=== PATIENT | female | born 1965 | race Hispanic/Latino ===

== ENCOUNTER 2017-03-16 10:57 | Outpatient (CLI) | payer BC | END 2017-03-16 10:58 | disposition home or self-care (01) | LOC: BICMAMMO 10:57 | PROVIDERS: ATTEND Obstetrics & Gynecology | DX: Z12.31 Encounter for screening mammogram for malignant neoplasm of breast (principal) | CPT/HCPCS: 77063 ==

== ENCOUNTER 2017-06-06 14:39 | Outpatient (CLI) | payer BC ==
--- NOTE | 2017-06-06 17:15 | MRI ---
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 COMPARISON: MRI of brain and sella of 12/18/2002. TECHNIQUE: Multiplanar, multisequence MR of the whole brain, and thin slice through the sella turcica, pre and p ost IV injection of 7 mL of Multihance gadolinium based contrast agent. FINDINGS: The ventricles are normal in size and configuration. There is no restricted diffusion, mass effect, m idline shift, or extra-axial fluid collection. No major intra-axial signal abnormality, abnormal enha ncement, or mass, of the brain. Previously, there was a precontrast T1 relatively hypointense mass in the left side of the sella turc ica, involving the left cavernous sinus, which enhanced. Now, in that location, there is an irregular ly shaped fluid signal intensity lesion, with an hourglass shape as seen on the coronal images, measu ring approximately 1.2 x 0.8 x 1 cm. There is little or no enhancement seen within this lesion on the dynamic post contrast images. There is questionable delayed mild enhancement on the standard delayed postcontrast images in this area. The left carotid siphon, more specifically the left supraclinoid i nternal carotid artery, abuts the undersurface of the left optic nerve, minimally displacing it super iorly. This was also the case previously. The right and left lateral edges of the sella turcica, and the dorsum sellae, are in very close proximity to the undersurfaces of the posterior optic nerves and optic chiasm, almost in contact, but without tamia compression. The clivus has normal signal. The Me ckel's caves are bilaterally normal. Right cavernous sinus is normal. IMPRESSION: 1. Previously demonstrated mass in the left side of the sella turcica, with involvement of the l eft cavernous sinus, currently has different signal characteristics and different enhancement pattern , and appears more cystic now. 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 2. The left supraclinoid carotid siphon abuts the undersurface of the posterior left optic nerve , minimally displacing it superiorly. 3. The same is true of the contralateral right side, to a lesser degree, and this involves the d orsum sellae, all in chronic very close proximity, if not contact with, the optic chiasm. It is uncer tain whether or not this is responsible for the patient's visual symptoms. 4. The brain is essentially normal. POS: [facility]
== END 2017-06-06 14:40 | disposition home or self-care (01) ==
LOC: MRI 14:39
PROVIDERS: ATTEND Internal Medicine Endocrinology, Diabetes & Metabolism
DX: D49.7 Neoplasm of unspecified behavior of endocrine glands and other parts of nervous system (principal); H54.7 Unspecified visual loss
CPT/HCPCS: 70553

== ENCOUNTER 2018-05-08 10:26 | Outpatient (CLI) | payer BC ==
--- NOTE | 2018-05-08 12:05 | RAD ---
CHEST 2 VIEWS: HISTORY: Fatigue. FINDINGS: Cardiac silhouette and pulmonary vasculature are unremarkable. Mediastinum is midline. No confluent airspace consolidation, pneumothorax, or pleural fluid. IMPRESSION: No active cardiopulmonary abnormalities are demonstrated. POS: [facility]
--- NOTE | 2018-05-08 12:09 | RAD ---
CERVICAL SPINE 4 VIEWS: Date: 05/08/18 HISTORY: Rheumatoid arthritis. Neck pain. FINDINGS: Vertebral body heights and alignment are maintained. Cervicothoracic junction is intact. Mild osteoph ytosis. No acute fracture, dislocation, or aggressive osseous erosions. IMPRESSION: Mild degenerative changes of cervical spine. POS: [facility]
--- NOTE | 2018-05-08 12:11 | RAD ---
THORACIC SPINE 3 VIEWS: Date: 05/08/18 HISTORY: Rheumatoid arthritis. Back pain. FINDINGS: There are 12 thoracic-type vertebrae. Minimal S-shaped curvature on the frontal view. Vertebral body heights and AP alignment are maintained. Mild osteophytosis throughout the vertebral bodies and facet s. IMPRESSION: Mild degenerative changes of the thoracic spine. No evidence of compression fracture. POS: [facility]
--- NOTE | 2018-05-08 12:22 | RAD ---
LUMBAR SPINE 3 VIEWS: HISTORY: Low back pain. Rheumatoid arthritis. FINDINGS: There are 5 lumbar-type vertebrae. Pedicles are intact. Vertebral body height and alignment are alethea ntained. Mild osteophytosis. Dystrophic calcification projects posterior through the midsacrum on t he lateral view. IMPRESSION: Mild degenerative changes. No evidence of compression fracture. POS: [facility]
== END 2018-05-08 10:27 | disposition home or self-care (01) ==
LOC: RAD 10:26
PROVIDERS: ATTEND Family Medicine
DX: M05.79 Rheumatoid arthritis with rheumatoid factor of multiple sites without organ or systems involvement (principal); R53.82 Chronic fatigue, unspecified; R10.9 Unspecified abdominal pain; N94.89 Other specified conditions associated with female genital organs and menstrual cycle; M47.816 Spondylosis without myelopathy or radiculopathy, lumbar region; M47.814 Spondylosis without myelopathy or radiculopathy, thoracic region; M47.812 Spondylosis without myelopathy or radiculopathy, cervical region
CPT/HCPCS: 71046; 72040; 72072; 72100

== ENCOUNTER 2018-07-14 03:06 | Emergency (ER) | payer BC ==
[2018-07-14 03:52] LABS: #Basophils 0.1 thou/uL (0.0-0.2); #Eosinphils 0.3 thou/uL (0.0-0.7); #Lymphocytes 3.8 thou/uL (1.20-3.40); #Monocytes 0.5 thou/uL (0.11-0.59); #Neutrophils 5.6 thou/uL (1.40-6.50); %Basophils 1.4 % (0.0-1.0); %Eosinophils 3.3 % (0.0-10.0); %Lymphocytes 36.5 % (21.0-51.0); %Monocytes 4.9 % (0.0-10.0); %Neutrophils 53.9 % (42.0-75.0); Hemoglobin 14.1 g/dL (12.0-16.0); Mean Corpuscular HGB CONC 33.7 g/dL (32.0-36.0); Mean Corpuscular Hemoglobin 31.6 pg (27.0-31.0); Mean Corpuscular Volume 93.6 fL (78.0-98.0); Mean Platelet Volume 6.9 fL (7.4-10.4); Platelet Count 359 thou/uL (130-400); RBC Distribution Width 11.5 % (11.5-14.5); Red Blood Cell (RBC) Count 4.47 mill/uL (4.20-5.40); White Blood Cell (WBC) Count 10.3 thou/uL (4.8-10.8)
[2018-07-14 04:11] LABS: ALT (SGPT) 15 U/L (8-55); AST (SGOT) 11 U/L (5-34); Albumin 4.4 g/dL (3.5-5.0); Alkaline Phosphatase 76 U/L (40-150); Anion Gap 15 mmol/L (10-20); BUN (Urea Nitrogen) 17 mg/dL (9.8-20.1); Bilirubin, Total 0.3 mg/dL (0.2-1.2); Calc. Creatinine Clearance 0 mL/min (70-130); Calcium 9.7 mg/dL (7.8-10.44); Carbon Dioxide 24 mmol/L (22-29); Chloride 106 mmol/L (98-107); Estimated GFR-MDRD 87; Globulin 3.1 g/dL (2.4-3.5); Glucose 120 mg/dL (70-105); Potassium 3.5 mmol/L (3.5-5.1); Protein, Total 7.5 g/dL (6.0-8.3); Sodium 141 mmol/L (136-145)
== END 2018-07-14 04:00 | disposition left against medical advice (07) ==
LOC: ERS 03:06
DX: Z53.21 Procedure and treatment not carried out due to patient leaving prior to being seen by health care provider (principal)
CPT/HCPCS: 36415; 80053; 84484; 85025; 85379; 93005

== ENCOUNTER 2018-07-19 12:18 | Outpatient (CLI) | payer BC ==
--- NOTE | 2018-07-19 14:17 | MRI ---
MRI BRAIN AND SELLA WITH AND WITHOUT CONTRAST: DATE: 07/19/18 HISTORY: 52-year-old female with R55 syncope and collapse, R22.0 localized swelling, mass and lump, head, and R41.3 other amnesia. COMPARISON: MRI brain and sella of 06/06/17. TECHNIQUE: Multiple sequences obtained in axial, sagittal, and coronal planes; pre and post IV injection of gado linium-based contrast agent: [] FINDINGS: The ventricles are normal in size and configuration. There is no major intraaxial signal abnormality , restricted diffusion, abnormal intraaxial enhancement, mass, midline shift or any other mass effect , recent intraaxial hemorrhage, or extraaxial fluid collection. Again noted is the irregularly shaped T1-hypointense and T2-hyperintense lesion in the left side of t he cavernous sinus/spenoid junction, as previously described. There is mild, thin, rim enhancement at this lesion, which may be cystic. The previously described chronic findings are unchanged. The super ior margins of the sella turcica and supraclinoid internal carotid arteries, in very close proximity to the bilateral optic nerves and optic chiasm, are again noted. There is no mass within the sella tu rcica itself. The clivus has normal signal. Bilateral Meckel's caves are normal. There has been no si gnificant change overall. IMPRESSION: 1. Lesion at the left lateral edge of sella turcica and left cavernous sinus, is unchanged since . 2. superior edges of sella turcica and supraclinoid internal carotids in close proximity to and abut ting optic nerves and optic chiasm, chronic and unchanged. 3. The brain is essentially normal. 4. No interval change overall since 06/06/17. jn[] POS: [facility]
== END 2018-07-19 12:19 | disposition home or self-care (01) ==
LOC: BICMRI 12:18
PROVIDERS: ATTEND Internal Medicine Endocrinology, Diabetes & Metabolism
DX: R22.0 Localized swelling, mass and lump, head (principal); R55 Syncope and collapse; R41.3 Other amnesia; G93.89 Other specified disorders of brain
CPT/HCPCS: 70553

== ENCOUNTER 2019-08-12 08:45 | Outpatient (CLI) | payer BC ==
--- NOTE | 2019-08-12 09:45 | ULT ---
Exam: Transabdominal and endovaginal pelvic ultrasound HISTORY:Increasing pelvic pain x1 year. Bilateral ovaries have been removed. COMPARISON: None TECHNIQUE: Transabdominal and endovaginal imaging of the pelvis is performed. FINDINGS: Uterus: Not appreciated on the transabdominal or endovaginal images Free fluid: None Right ovary: Surgically absent Left ovary: Surgically absent IMPRESSION: No obvious masses or fluid in the pelvis.
== END 2019-08-12 08:46 | disposition home or self-care (01) ==
LOC: BICULT 08:45
PROVIDERS: ATTEND Family Medicine
DX: R10.2 Pelvic and perineal pain (principal)
CPT/HCPCS: 76856

== ENCOUNTER 2020-11-26 15:19 | Outpatient (CLI) | payer BC | END 2020-11-26 15:20 | disposition home or self-care (01) | LOC: BICMAMMO 15:19 | PROVIDERS: ATTEND Family Medicine | DX: Z12.31 Encounter for screening mammogram for malignant neoplasm of breast (principal); Z91.89 Other specified personal risk factors, not elsewhere classified | CPT/HCPCS: 77063; 77067 ==

== ENCOUNTER 2021-04-27 13:51 | Outpatient (CLI) | payer BC | END 2021-04-27 13:52 | disposition home or self-care (01) | LOC: BICRAD 13:51 | PROVIDERS: ATTEND Physician Assistant | DX: R07.81 Pleurodynia (principal) ==

== ENCOUNTER 2021-07-21 12:26 | Outpatient (CLI) | payer BC | END 2021-07-21 12:27 | disposition home or self-care (01) | LOC: ULT 12:26 | PROVIDERS: ATTEND Family Medicine | DX: E07.89 Other specified disorders of thyroid (principal); E04.1 Nontoxic single thyroid nodule | CPT/HCPCS: 76536 ==

== ENCOUNTER 2022-06-21 12:48 | Outpatient (CLI) | payer BC | END 2022-06-21 12:49 | disposition home or self-care (01) | LOC: BICRAD 12:48 | PROVIDERS: ATTEND Family Medicine | DX: M25.512 Pain in left shoulder (principal) ==

== ENCOUNTER 2022-08-11 12:36 | Outpatient (CLI) | payer BC | END 2022-08-11 12:37 | disposition home or self-care (01) | LOC: BICMAMMO 12:36 | PROVIDERS: ATTEND Family Medicine | DX: Z12.31 Encounter for screening mammogram for malignant neoplasm of breast (principal); Z91.89 Other specified personal risk factors, not elsewhere classified | CPT/HCPCS: 77063; 77067 ==

== ENCOUNTER 2023-02-11 18:08 | Emergency (ER) | payer BC ==
[2023-02-11 18:50] LABS: Delete Auto Diff?? YES; Hematocrit 38.1 % (36.0-47.0); Manual Diff?? YES; Mean Corpuscular HGB CONC 34.1 g/dL (32.0-36.0); Mean Corpuscular Volume 93.8 fl (78.0-98.0); Platelet Count 369 10x3/uL (130-400); RBC Distribution Width 12.4 % (11.5-14.5); Red Blood Cell (RBC) Count 4.06 mill/uL (4.20-5.40); White Blood Cell (WBC) Count 16.7 10x3/uL (4.8-10.8)
[2023-02-11 19:16] LABS: ALT (SGPT) 38 U/L (8-55); AST (SGOT) 15 U/L (5-34); Albumin 4.4 g/dL (3.5-5.0); Alkaline Phosphatase 85 U/L (40-110); Anion Gap 18 mmol/L (10-20); BUN (Urea Nitrogen) 19 mg/dL (9.8-20.1); Bilirubin, Total 0.2 mg/dL (0.2-1.2); Calc. Creatinine Clearance 0 mL/min (70-130); Calcium 9.1 mg/dL (7.8-10.44); Carbon Dioxide 23 mmol/L (22-29); CellaVision Operator ID LAB.KB; Chloride 102 mmol/L (98-107); Eosinophils 4 % (0-10); Estimated GFR 64; Glucose 285 mg/dL (70-105); Lymphocytes 27 % (21-51); Magnesium 1.8 mg/dL (1.6-2.6); Monocytes 1 % (0-10); Neutrophil 61 % (42-75); Platelet Adequacy Comment Platelets Normal; Potassium 3.3 mmol/L (3.5-5.1); Protein, Total 7.4 g/dL (6.0-8.3); RBC Morphology Within Normal Limits; Reactive Lymphocytes 7 % (0-10); Smudge Cells 41.8 %; Sodium 140 mmol/L (136-145); Total Cell Count 98
[2023-02-11 19:20] LABS: Troponin I Less than 0.010 ng/mL (< 0.028)
[2023-02-11] MEDS ORDERED: Potassium Chloride 20 MEQ TAB ONE (19:59)
[2023-02-11 21:51] LABS: SARS-CoV-2 NAA Rapid Test Not Detected (NotDetected)
== END 2023-02-11 21:20 | disposition home or self-care (01) ==
LOC: ERS 18:08
DX: R07.9 Chest pain, unspecified (principal); T78.40XA Allergy, unspecified, initial encounter; Z20.822 Contact with and (suspected) exposure to COVID-19; I10 Essential (primary) hypertension; E03.9 Hypothyroidism, unspecified
CPT/HCPCS: 36415; 71045; 80053; 83735; 84484; 85025; 93005

== ENCOUNTER 2025-01-09 15:10 | Outpatient (CLI) | payer BC | END 2025-01-09 15:11 | disposition home or self-care (01) | LOC: BICMAMMO 15:10 | PROVIDERS: ATTEND Family Medicine | DX: Z12.31 Encounter for screening mammogram for malignant neoplasm of breast (principal); Z91.89 Other specified personal risk factors, not elsewhere classified | CPT/HCPCS: 77063; 77067 ==